=== PATIENT | female | born 1970 | race Caucasian/White ===

== ENCOUNTER 2023-02-01 00:28 | Emergency (ER) | payer BC, SELFPAY ==
--- NOTE | ~2023-02-01 | CT_ITS ---
EXAMINATION: NONCONTRAST HEAD CT NONCONTRAST MAXILLOFACIAL CT INDICATION INFORMATION: Status post fall COMPARISON: None TECHNIQUE: Separate noncontrast CT examinations of the head and maxillofacial bones were performed. Coronal and sagittal images were created for each examination at the technologist workstation. This CT examination was performed using dose optimization techniques as appropriate, variously including the following: *Automated exposure control *Adjustment of mA and/or kV according to patient size (this includes techniques or standardized protocols for targeted exams where dose is matched to indication/reason for exam; i.e. extremities or head) *Use of iterative reconstruction technique DLP: 984 mGy-cm FINDINGS: Head: There is no evidence of acute intracranial hemorrhage or territorial infarction. No abnormal mass effect or midline shift is seen. German to white matter differentiation is well preserved. No extra-axial fluid collections are identified. No hydrocephalus. No significant volume loss. There is no abnormal attenuation within the brain parenchyma. No acute soft tissue abnormality. No calvarial fracture. The mastoid air cells are well aerated. Maxillofacial: No acute maxillofacial fractures are seen. The frontal, maxillary, ethmoid, and sphenoid sinuses are well aerated. The uncinate process is normal bilaterally. The infundibula and middle meati are patent. The nasal septum is midline. The mandibular heads are well-seated in the condylar fossa. The orbits demonstrate a normal appearance bilaterally. The globes are intact, and there are no suspicious findings to suggest retrobulbar hemorrhage. There is left premaxillary and buccal soft tissue swelling/stranding with trace soft tissue gas punctate hyperdensities reflective of foreign bodies. CT/CT facial bones wo IV con IMPRESSION: * No acute intracranial findings. * No acute maxillofacial fracture. * Left premaxillary and buccal soft tissue trauma as described.
[2023-02-01 00:42] VITALS: BP 155/105; PULSE 110; RESP 17; TEMP 36.6; O2SAT 95; BMI 31.6
--- NOTE | 2023-02-01 01:07 | ED.FALL ---
HPI - Fall General Chief Complaint: Wound/Laceration Stated Complaint: Fall/Face Lac Time Seen by Provider: 02/01/23 01:07 Source: patient Mode of arrival: ambulatory Limitations: no limitations History of Present Illness HPI Narrative: Patient had few drinks earlier today was coming out of the car lost balance tripped and fell hitting her left cheek to the post, comes here with laceration at the chin and left cheek no loss of conscious no seizures no other injury Related Data Previous Rx's Medication Instructions Recorded cephalexin 500 mg capsule 500 mg PO QID 7 days #28 caps 02/01/23 Allergies Allergy/AdvReac Type Severity Reaction Status Date / Time Penicillins Allergy Hives Verified 02/01/23 00:45 Review of Systems Review of Systems: Yes all other systems are reviewed and are negative [facility] Social History Social History Advance Directives: No Advance Directives Information Provided: Yes Physical Exam Vital Signs: Vital Signs: Last Vital Signs Temp 97.9 F 02/01/23 00:42 Pulse 110 H 02/01/23 00:42 Resp 17 02/01/23 00:42 BP 155/105 H 02/01/23 00:42 Pulse Ox 95 02/01/23 00:42 O2 Del Method Room Air 02/01/23 00:42 BMI result Body Mass Index 31.6 Appearance: Alert. Oriented X3. No acute distress. etoh+ Eyes: PERRLA, No Nystagmus ENT: Pharynx normal. Oral Mucosa moist Neck: Normal inspection. Neck supple. No midline tenderness CVS: Normal heart rate and rhythm. Pulses normal. Respiratory: No respiratory distress. Equal air entry bilateral, no wheezing/rales/rhonchi Abdomen: Soft and nontender. Bowel sounds are present, no mass palpable, no CVA tenderness Skin: Skin warm and dry. Normal skin color. Normal skin turgor. Extremities: No lower extremity edema. No calf tenderness Neuro: Oriented X 3. No motor deficit. No sensory deficit.No cerebellar signs , cranial nerves II-XII intact HEENT: Head images: 1. Deep flap laceration left cheek 8 cm 2. Superficial laceration 1 cm Medications Administered Discontinued Medications Generic Name Dose Route Start Last Admin Trade Name Freq PRN Reason Stop Dose Admin Lidocaine HCl 15 ml 02/01/23 01:18 02/01/23 01:28 Lidocaine Hcl 1 % Mpf 5 Ml Vial INFILTRATI 02/01/23 01:19 15 ml ONCE ONE Administration Procedures Laceration Laceration 1: Site: face Side (If applicable): left Size (cm): 10 Depth: simple, single layer Local Anesthetic: lidocaine 1% Amount of anesthesia used (mL): 15 Pre-repair: wound explored and deep structures intact Skin layer closed with: nylon Size (cm): 5-0 Number of sutures: 13 Technique: simple, interrupted Laceration 2: Site: face Side (If applicable): left Size (cm): 1.5 Description: linear Depth: simple, single layer Local Anesthetic: lidocaine 1% Amount of anesthesia used (mL): 2 Skin layer closed with: nylon Size (cm): 5-0 Number of sutures: 4 Technique: simple, interrupted Medical Decision Making Medical Decision Making MDM Narrative: Patient with laceration to the left cheek and chin which was sutured will get CT scan to rule out any deeper injury Discharge Plan Discharge Clinical Impression: Laceration, Head injury Patient Disposition: Home, Self-Care Instructions: Head Injury (ED), Facial Laceration (ED) Additional Instructions: Local care as advised Suture removal in 10 days Take prophylaxis antibiotic to avoid infection Prescriptions: New cephalexin 500 mg capsule 500 mg PO QID 7 Days Qty: 28 0RF
--- NOTE | 2023-02-01 01:22 | MHC.EDTECH ---
this tech irrigated and cleaned laceration to left cheek and lip. suture set up at bedside for .
[2023-02-01] MEDS: Lidocaine HCl 1 % MPF 5 ML VIAL 15 ML INFILTRATI (01:28)
[2023-02-01] MEDS: cephALEXin 500 MG CAPSULE PO (02:14)
[2023-02-01] MEDS: Diphth,Pertus(ACell),Tet Adult 0.5 ML SYRINGE IM (02:15)
--- NOTE | 2023-02-01 03:25 | PC.NURSE ---
patient ambulatory to and from bathroom with steady gait.
[2023-02-01 03:37] VITALS: PULSE 88; RESP 17; O2SAT 98
== END 2023-02-01 03:38 | disposition home or self-care (01) ==
PROVIDERS: Emergency Provider Internal Medicine; PCP Internal Medicine
DX: S00.81XA Abrasion of other part of head, initial encounter (principal); R51.9 Headache, unspecified; W01.10XA Fall on same level from slipping, tripping and stumbling with subsequent striking against unspecified object, initial encounter; Y93.9 Activity, unspecified; Y92.9 Unspecified place or not applicable; Y99.9 Unspecified external cause status; Z23 Encounter for immunization
CPT/HCPCS: 70450; 70486; 90471; 90715; 99283; 99284

== ENCOUNTER 2025-07-06 11:44 | Emergency (ER) | payer BC, SELFPAY ==
--- NOTE | ~2025-07-06 | US_ITS ---
EXAMINATION: US LOWER EXTREMITY VEINS LIMITED FOLLOW UP LEFT HISTORY: swelling, redness, concern for DVT COMPARISON: There are no prior studies available for comparison. TECHNIQUE: Duplex and color Doppler sonographic examination of the deep venous system of the left lower extremity was performed. FINDINGS: The common femoral, superficial femoral, and popliteal veins are patent demonstrating normal compressibility, spontaneous flow, and augmentation. There is a normal color and spectral Doppler waveform appearance of the visualized deep venous system above the knee. The posterior tibial and peroneal veins are patent. There is thrombosis of a superficial venous varicosity of the left proximal medial calf. US/US venous duplex LE LT IMPRESSION: Thrombosis of a superficial venous varicosity in the left proximal medial calf. No evidence of acute DVT in the left lower extremity. Electronically signed by: Filipe Gallardo MD 07/06/2025 02:49 PM EDT
[2025-07-06 11:48] VITALS: BP 174/95; PULSE 83; RESP 18; TEMP 36.4; O2SAT 99; BMI 30.7
--- NOTE | 2025-07-06 11:51 | ED_ITS ---
HPI - General Adult General Chief complaint: Extremity Injury, Lower Stated complaint: r/o DVT sent from Time Seen by Provider: 07/06/25 15:06 Source: patient Mode of arrival: ambulatory Limitations: no limitations History of Present Illness ED Provider: Emily Ruiz PA-C HPI narrative: Patient is a 54 year old assigned female at with no reported medical history presenting to the emergency department today with left lower leg pain, redness, and swelling. Patient states that over the last day she has had left lower leg redness / swelling / pain. Patient denies any other complaints at this time. Related Data Previous Rx's ?Medication ?Instructions ?Recorded cephalexin 500 mg capsule 500 mg PO QID 7 days #28 cap s 02/01/23 Allergies Allergy/AdvReac Type Severity Reaction Status Date / Time Penicillins Allergy Hives Verified 07/06/25 11:50 Review of Systems 2 Constitutional: Constitutional: Reports as per HPI Eyes: Eyes: Reports as per HPI ENT: Reports as per HPI Cardiovascular: Cardiovascular: Reports as per HPI Respiratory: Respiratory: Reports as per HPI Gastrointestinal: Gastrointestinal: Reports as per HPI Genitourinary: Genitourinary: Reports as per HPI Musculoskeletal: Musculoskeletal: Reports as per HPI Integumentary/Breasts: Skin/Breast: Reports as per HPI Neurologic: Reports as per HPI Psychiatric: Psychiatric: Reports as per HPI Endocrine: Endocrine: Reports as per HPI Hematologic/Lymphatic: Hematologic/Lymphatic: Reports as per HPI Allergic/Immunologic: Allergic/Immunologic: Reports as per HPI PMF Past Medical History Attestation statement: The following information was validated with the patient. Source: old records reviewed and nursing notes reviewed Social History Social History Advance Directives: Yes Advance Directives Information Provided: Yes Advance Directives on File: No Physical Exam ED Vital Signs: Vital Signs - 24 hr 07/06/25 11:48 07/06/25 15:28 Temperature 97.6 F 97.6 F Pulse Rate 83 83 Respiratory Rate 18 18 Blood Pressure 174/95 H 174/95 H Pulse Oximetry 99 99 Oxygen Delivery Method Room Air Room Air BMI result Body Mass Index 30.7 Const General: cooperative, no acute distress, alert and awake Nutritional Appearance: well nourished Orientation/consciousness: patient oriented x3 HENMT Head: Yes normal to inspection and Yes atraumatic Ears: hearing grossly normal bilaterally and external ears normal General nose exam: Normal external nose present, no nasal discharge noted and no epistaxis Face and sinus: Yes normal facial exam, No abrasion and No laceration Mouth: Normal oral and palatal mucosa present, no drooling and no muffled voice Eyes General: appearance normal, both eyes and all related structures Periorbital: periorbital findings normal Eyelids: Yes eyelids normal Conjunctivae: conjunctivae normal Pupils: Equal, round and reactive pupils present EOM: EOMs intact bilaterally Neck Neck: Yes normal visual inspection and Yes full ROM Resp Effort & Inspection: normal respiratory effort and able to speak in complete sentences Neuro General: patient oriented x3, moves all extremities and CN's II-XI intact bilaterally Cranial nerves: Yes Equal, round and reactive pupils present Cognition (Neuro): normal cognition Extrem Other: left lower leg warmth left lower leg redness minimal swelling to the left lower leg General: Yes full ROM and Yes capillary refill normal Psych Appearance: grossly normal Mental Status: mental status grossly normal Affect: normal affect Attitude: cooperative Thought process: Normal thought process present Thought content: Normal thought content present Insight: Good insight present (Psych) Course Course Course Narrative: Rapid medical examination performed in triage by Emily Ruiz PA-C. Patient is a 54 year old assigned female at presenting to the emergency department with left lower leg swelling / redness.Detailed physical exam and review of systems are deferred to the features reporter. Labs and imaging ordered. Patient placed back in the waiting room pending room availability and results. Medical Decision Making Medical Decision Making MDM Narrative: Patient is a 54 year old assigned female at with no reported medical history presenting to the emergency department today with left lower leg pain, redness, and swelling. Patient's physical exam was as noted in the physical exam portion of this note. Patient's blood work showed an elevated CRP of 0.92 but otherwise unremarkable. Patient's LLE US showed superficial thrombophlebitis. I explained my physical exam findings as well as all test results to the patient. I answered all questions asked by the patient. I stressed the importance of the patient taking her medication as directed (either prescribed or as the over the counter packaging recommends). I stressed the importance of the patient following up with her primary care provider. I stressed the importance of the patient returning to the emergency department immediately if her symptoms were to worsen or if she were to develop any dizziness, shortness of breath, difficulty breathing, chest pain, blurry vision, loss of vision, nausea, vomiting, abdominal pain, fever, chills, back pain, or any other complaints. Patient verbalized agreement and understanding with this treatment plan and discharge. Differential Diagnosis Differential Diagnoses: The differential diagnosis associated with the presentation includes Left lower leg DVT Left lower leg thrombophlebitis Left lower leg cellulitis Left lower leg pain Admission/Observation Consideration of admission/observation: Escalation of care including admission/observation considered Patient would have been admitted to the hospital had her work up had any findings where hospital admission was appropriate and her clinical presentation warranted hospital admission. Lab Data [facility] Lab Attestation statement: I reviewed the patient's lab results. My interpretation of these results are in the [facility] Rationale portion of this note. 07/06/25 12:17 07/06/25 12:17 Labs: Lab Results 07/06/25 Range/Units 12:17 WBC 9.7 (4.8-10.8) X10*3/uL RBC 4.64 (4.20-5.50) X10*6/uL Hgb 14.3 (12.0-16.0) g/dl Hct 41.7 (37.0-47.0) % MCV 89.9 (80.0-98.0) fL MCH 30.8 (27.0-33.0) pg MCHC 34.3 (31.0-35.0) g/dl RDW 14.8 (11.0-16.0) % Plt Count 308 (160-400) X10*3/uL MPV 9.5 (9.4-12.3) fL Immature Gran % (Auto) 0.3 (0.0-0.4) % Neut % (Auto) 60.8 (45-73) % Lymph % (Auto) 28.3 (20-40) % Clark % (Auto) 8.8 (2-11) % Eos % (Auto) 1.3 (0-4) % Baso % (Auto) 0.5 (0-2) % Lymph # (Auto) 2.8 (1.2-4.9) X10*3/uL Clark # (Auto) 0.9 (0.1-1.2) X10*3/uL Eos # (Auto) 0.1 (0.0-0.4) X10*3/uL Baso # (Auto) 0.1 (0.0-0.2) X10*3/uL Abs Immat Gran (auto) 0.03 (0.00-0.03) X10*3/uL Absolute Neuts (auto) 5.9 (2.0-8.3) x10*3/uL Absolute Nucleated RBC 0.000 (0.0-0.012) X10*3/uL Nucleated RBC % (auto) 0.0 (0.0-0.2) /100WBC ESR 2 (0-20) MM/HR Sodium 137 (135-145) mmol/L Potassium 3.9 (3.3-5.1) mmol/L Chloride 102 (96-108) mmol/L Carbon Dioxide 27 (22-29) mmol/L Anion Gap 12 (12-20) BUN 6 L (9-16) mg/dL Creatinine 0.70 (0.5-1.4) mg/dL Estim Creat Clear Calc 102.8 Estimated GFR > 60 Random Glucose 106 (60-115) mg/dL Calcium 9.1 (8.4-10.2) mg/dL Total Bilirubin 0.3 (0.0-1.0) mg/dL AST 19 (5-31) U/L ALT 18 (0-31) U/L Alkaline Phosphatase 75 (39-117) U/L C-Reactive Protein 0.92 H (< or = 0.50) mg/dL Total Protein 6.9 (6.5-8.0) g/dL Albumin 4.2 (3.5-5.0) g/dL Independent Interpretation I performed an independent interpretation of an: Ultrasound Interpretation: My interpretation is in agreement with the radiologist's impression of this imaging study. L Reason for Exam: swelling, redness, concern for DVT EXAMINATION: US LOWER EXTREMITY VEINS LIMITED FOLLOW UP LEFT HISTORY: swelling, redness, concern for DVT COMPARISON: There are no prior studies available for comparison. TECHNIQUE: Duplex and color Doppler sonographic examination of the deep venous system of the left lower extremity was performed. FINDINGS: The common femoral, superficial femoral, and popliteal veins are patent demonstrating normal compressibility, spontaneous flow, and augmentation. There is a normal color and spectral Doppler waveform appearance of the visualized deep venous system above the knee. The posterior tibial and peroneal veins are patent. There is thrombosis of a superficial venous varicosity of the left proximal medial calf. US/US venous duplex LE LT IMPRESSION: Thrombosis of a superficial venous varicosity in the left proximal medial calf. No evidence of acute DVT in the left lower extremity. Electronically signed by: Filipe Gallardo MD 07/06/2025 02:49 PM EDT RP Dictated By: Filipe Gallardo MD Signed By: Electronically signed by Filipe Gallardo MD 07/06/25 1449 Radiology Impression Discussion of test interpretation with radiology: I have reviewed the radiologist's reading. Discharge Plan Discharge Clinical Impression: Thrombophlebitis Patient Disposition: Home, Self-Care Instructions: Superficial Thrombophlebitis (ED) Additional Instructions: Apply heat to the affected area and take over the counter NSAIDs. IF you are prescribed home medications and/or you are taking over the counter medications at home- it is very important you continue to do so as prescribed / directed unless told otherwise. SI le recetan medicamentos y/o est? tomando medicamentos de venta sade, es muy importante que contin?e haci?ndolo seg?n lo recetado/indicado a menos que le indiquen lo contrario. Follow up with your primary care provider. Return to the emergency department immediately if your symptoms worsen or if you develop any dizziness, shortness of breath, difficulty breathing, chest pain, blurry vision, loss of vision, nausea, vomiting, abdominal pain, fever, chills, back pain, or any other complaints. Ezra?seguimiento?con cuevas m?dico de atenci?n primaria. Acuda inmediatamente al servicio de urgencias si january s?ntomas empeoran o si presenta falta de aliento, dificultad para respirar, dolor tor?cico, mareos, aturdimiento, dolor de espalda, dolor abdominal, fiebre, escalofr?os o cualquier otro s?ntoma. Please see the information below about our Patient Portal. If you are not yet enrolled in the [facility] Patient Portal, you will receive an enrollment email invitation following your visit to any [facility] care setting. You may also self-enroll in the Patient Portal by visiting our website: [email or web address] The following information is required to access the Patient Portal: - Your [facility] Medical Record Number - Your personal home email address (must match what is in your electronic medical record, Registration staff can assist with this) - Name - Date of Capabilities of the Patient Portal: - Message some providers - View upcoming appointments - Access your health summary, medical history, and visit history - View current conditions and allergies - View procedure and lab results - View your medications, including guidelines, side effects, and precautions - Complete pre-appointment questionnaires requested by your provider - Ready summary reports of your office visits and procedures To access the Patient Portal Mobile [place], follow these directions: - Search [employer] in the [place] Store or [employer] Store - Download the [place] - Search for [facility] - Enter your login/password Portal del paciente Si usted no esta inscrito en el portal de pacientes de [facility], recibira erin invitacion de inscripcion despues de cuevas visita al [facility] o al [facility] via correo electronico. Tambien puede inscribirse voluntariamente en el portal de pacientes visitando nuestra pagina web: [email or web address] La siguiente informacion sera requerida para acceder al portal: - Cuevas kaley de historia medica de [facility] - Cuevas direccion de correo electronico personal - Nombre - Fecha de nacimiento Capacidades: Las siguientes capacidades estan disponibles en el portal de pacientes: - Enviar mensajes a algunos doctores - Verificar proximas citas - Acceso a cuevas historial de abad, registro medico e historial de visitas - Karen las condiciones actuales y alergias karen procedimientos y resultados del laboratorio - Karen january medicamentos, incluyendo las pautas - Efectos secundarios y precauciones - Completar o llenar formularios / cuestionarios de - Citas solicitadas por cuevas doctor - Leer los resumenes de reportes medicos de january visitas y procedimientos Tomas acceder a la aplicacion movil: - Meseret [employer] en la [place] Store o [employer] Store - Descargue la aplicacion - [facility] - Ingrese cuevas nombre de usuario / Contrasena Prescriptions: No Action cephalexin 500 mg capsule 500 mg PO QID 7 Days Qty: 28 0RF Referrals: Len Stevens MD [Primary Care Provider, Internal Medicine] Interventions: ED Discharge Assessment Last Done: 07/06/25 15:28 Discharge Date/Time: 07/06/25 15:28 Print Language: Tuvaluan
[2025-07-06 12:26] LABS: MANUAL DIFF FLAG NO
[2025-07-06 12:27] LABS: Hematocrit 41.7 % (37.0-47.0); Hemoglobin 14.3 g/dl (12.0-16.0); Imm Gran Abs Auto 0.03 X10*3/uL (0.00-0.03); Imm Gran Pct Auto 0.3 % (0.0-0.4); Lymphocytes Absolute Auto 2.8 X10*3/uL (1.2-4.9); Mean Corpuscular HGB Conc 34.3 g/dl (31.0-35.0); Mean Corpuscular Hemoglobin 30.8 pg (27.0-33.0); Mean Corpuscular Volume 89.9 fL (80.0-98.0); NRBC Abs Auto 0.000 X10*3/uL (0.0-0.012); NRBC Pct Auto 0.0 /100WBC (0.0-0.2); Platelet Count 308 X10*3/uL (160-400); Red Blood Count 4.64 X10*6/uL (4.20-5.50); White Blood Count 9.7 X10*3/uL (4.8-10.8)
[2025-07-06 12:44] LABS: Alanine Aminotransferase 18 U/L (0-31); Albumin Level 4.2 g/dL (3.5-5.0); Alkaline Phosphatase 75 U/L (39-117); Anion Gap 12 (12-20); Aspartate Amino Transferase 19 U/L (5-31); Blood Urea Nitrogen 6 mg/dL (9-16); Calcium 9.1 mg/dL (8.4-10.2); Carbon Dioxide 27 mmol/L (22-29); Chloride 102 mmol/L (96-108); Creatinine Clr Calc Pharmacy 102.8; Estimated Glomerular Filt Rate > 60; Potassium 3.9 mmol/L (3.3-5.1); Sodium 137 mmol/L (135-145); Total Protein 6.9 g/dL (6.5-8.0)
--- NOTE | 2025-07-06 14:15 | PC.NURSE ---
This RN called US as chargemaster analyst to assess with the US order at 1130 has not been complete as provider is trying to dispo patient from waiting room. US to get pt at this time, provider still wanting to DC from waiting
[2025-07-06 15:28] VITALS: BP 174/95; PULSE 83; RESP 18; TEMP 36.4; O2SAT 99
--- OUTSIDE RECORDS SUMMARY | 2025-07-06 17:38 | XMS_ITS | Clinical Summary ---
Author Organization [facility] Address [address] [place] [phone] Phone Care Team Providers Care Health And Safety Director Name Role Phone Len Stevens MD Primary Care Provide r Allergies Active Allergy Reactions Criticality Noted Date Comments Penicillins Rash Low 04/12/2019 Sulfa (Sulfonamide Antibiotics) Rash Low 03/25 Medications No known medications Active Problems No known active problems Social History Tobacco Use Types Packs/Day Years Used Date Smoking Tobacco: Every Day Cigarettes Smokeless Tobacco: Never Alcohol Use Standard Drinks/Week Comments Yes 7 (1 standard drink = 0.6 oz pur e alcohol) Education Answer Date Recorded Are you interested in more education? Not on ilan e 02/19/2023 Are you concerned about learning? Not on file 02/19/2023 No 02/19/2023 No 02/19/2023 Digital Access Answer Date Recorded No 03/20/2023 No 03/20/2023 No 03/20/2023 Reliable internet access at home? Not on file 03/20/2023 Device with a working camera? Not on file Comments Unknown Sex and Gender Information Value Date Recorded Sex Assigned at Not on file Legal Sex Female 9:29 AM EDT Gender Identity Not on file Sexual Orientation Not on file Last Filed Vital Signs Vital Sign Reading Time Taken Comments Blood Pressure 138/76 03/23/2022 2:37 PM EDT Pulse 76 03/23/2022 2:37 PM EDT Temperature 36.8 C (98.3 F) 03/23/2022 2:37 PM EDT Respiratory Rate 15 03/23/2022 2:37 PM EDT Oxygen Saturation 99% 03/23/2022 2:37 PM EDT Inhaled Oxygen Concentration - - Weight 77.1 kg (170 lb) 03/23/2022 2:37 PM EDT Height 167.6 cm (5' 6 ) 03/23/2022 2:37 PM EDT Body Mass Index 27.44 03/23/2022 2:37 PM EDT Plan of Treatment Health Maintenance Due Date Last Done Comments LIPID PANEL 1971 DEPRESSION SCREENING 1983 SMOKING Hx and SMOKELESS TOBACCO SCREENING 1984 HEPATITIS C SCREENING 1989 HIV ONE-TIME SCREENING (18-65 YEARS) 1989 PAP SMEAR 1992 MAMMOGRAM 2011 PNEUMOCOCCAL VACCINES (50+ years) (2 of 2 - PCV) 07/15/2013 07/15/2012 COLOGUARD 2016 FIT TEST 2016 FOBT 2016 SIGMOIDOSCOPY 2016 VIRTUAL COLONOSCOPY 2016 ZOSTER VACCINES (1 of 2) 2021 INFLUENZA VACCINE (#1) 2025 9, 08/12/2018, 08/13/2016, Additional history exists COVID-19 VACCINE (2 - 2024- season) 2025 01/16/2021 Adult Td,Tdap Booster 02/04/2028 02/03/2018, 998 COLONOSCOPY 04/12/2029 04/12/2019 COLORECTAL CANCER SCREENING 04/12/2029 HEPATITIS A VACCINES Aged Out No long er eligible based on patient's age to complete this topic HIB VACCINES Aged Out No longer eligi ble based on patient's age to complete this topic MENINGOCOCCAL VACCINES (ACWY) Aged Out No longer eligible based on patient's age to complete this topic MENINGOCOCCAL VACCINES (B) Aged Out N o longer eligible based on patient's age to complete this topic Medical Devices Implanted Type Area Wardrobe Attendant Device Identifier Shelf Expiration Date Model / Serial / Lot Clip Hemostasis Resolution 360 Lf Nonsterile 2.8mm Channel 360deg 235cm Bx/20ea - [id number] Implanted:Qty: 1 on 04/12/2019 by Dianna Kaminski MD at [facility] [employer] [facility] [id number] / / Procedures Procedure Name Priority Date/Time Associated Diagnosis Comments ENDOSCOPY, COLON 04/12/2019 8:15 AM EDT from Last 3 Months or Most Recently Relevant to Health Maintenance Results * ENDOSCOPY, COLON (04/12/2019 8:15 AM EDT) Narrative Transcriptions Dianna Kaminski MD - 04/12/2019 8:15 AM EDT Patient Name: Layton Ruiz Attending MD:: DIANNA KAMINSKI MD Procedure Date: 04/12/2019 8:15 AM Date of : 1970 Age: 48 Admit Type: Outpatient Gender: Female Room: [place] [address] Referring MD: LEN STEVENS Exam Type: Colonoscopy Indications: Screening patient at increased risk: Family history of 1st-degree relative with colorectal cancer at age 60years (or older), Screening patient at increased risk: Family history of colorectal cancer in multiple 1st-degree relatives Medications: Monitored Anesthesia Care Procedure: Informed consent was obtained from the patient after discussion of the indications, limitations,alternatives, benefits, and risks of the procedure. Risksspecifically discussed include but are not limited to medication reactions, missed lesions, bleeding, perforation, orthe need for emergent surgery. Throughout the procedure, the patient's blood pressure, pulse, end-tidal CO2, and oxygen saturations were monitored continuously. The Olympus pediatric variable colonoscope [id number]-[id number] was introduced through the anus and advanced to thececum, identified by appendiceal orifice and ileocecal valve.The colonoscopy was performed without difficulty. Thepatient tolerated the procedure fairly well. The quality of the bowel preparation was good. Complications: No immediate complications. Estimated blood loss:None. Findings: The perianal and digital rectal examinations werenormal. Pertinent negatives include normal sphincter tone. A 6 mm polyp was found in the distal sigmoid colon. The polyp was sessile. The polyp was removed with a cold snare. Resection and retrieval were complete. Toprevent bleeding after the polypectomy, two hemostatic clipswere successfully placed. There was no bleeding during, orat the end, of the procedure. Retroflexion in the right colon was performed. The exam was otherwise without abnormality on directand retroflexion views. Impression: - One 6 mm polyp in the distal sigmoid colon, removedwith a cold snare. Resected and retrieved. Clips wereplaced. - The examination was otherwise normal on direct and retroflexion views. Recommendation: - I will send results of your biopsy to you and your referring physician or provider. If you do not receive notification within 3 weeks, please call our office. - Repeat colonoscopy in 5 years for surveillance basedon pathology results. -Clip precautions DIANNA KAMINSKI MD 04/12/2019 8:40:18 AM This report has been signed electronically. Number of Addenda: 0 Note Initiated On: 04/12/2019 8:15 AM Procedure Code(s): --- Professional --- 34435, Colonoscopy, flexible; with removal of tumor(s), polyp(s), or other lesion(s) by snare technique --- Technical --- 86572, Colonoscopy, flexible; with removal of tumor(s), polyp(s), or other lesion(s) by snare technique Diagnosis Code(s): --- Professional --- D12.5, Benign neoplasm of sigmoid colon Z80.0, Family history of malignant neoplasm of digestive organs --- Technical --- D12.5, Benign neoplasm of sigmoid colon Z80.0, Family history of malignant neoplasm of digestive organs CPT copyright 2016 [employer]. All rights reserved. The codes documented in this report are preliminary and upon flute grinder reviewmay be revised to meet current compliance requirements. [address] [place] [address] Len Stevens MD GI PROCEDURE ORDERABL ES Final Result from Last 3 Months or Most Recently Relevant to Health Maintenance Insurance [facility] POS [facility] Care Teams Health And Safety Director Relationship Specialty Start Date End Date Len Stevens MD PCP - General Internal Medicine 04/12/19 Additional Source Comments The information contained in this document represents components of the legal health record. It is not the complete legal health record.[facility]
--- OUTSIDE RECORDS SUMMARY | 2025-07-06 17:38 | XMS_ITS | Encounter Summary ---
Author Organization [facility] Address [address] [place] [phone] Phone Care Team Providers Care Law Tutor Name Role Phone Len Stevens MD Primary Care Provide r Encounter Details Date Type Department Care Team ([facility] st Contact Info) Description 04/12/2019 Procedure Pass [facility] Endoscopy Admitting Dept Virtual Department [address] [place] [address] Social History Tobacco Use Types Packs/Day Years Used Date Smoking Tobacco: Every Day Cigarettes Smokeless Tobacco: Never Alcohol Use Standard Drinks/Week Comments Yes 7 (1 standard drink = 0.6 oz pur e alcohol) Comments Unknown Sex and Gender Information Value Date Recorded Sex Assigned at Not on file Legal Sex Female 9:29 AM EDT Gender Identity Not on file Sexual Orientation Not on file documented as of this encounter Plan of Treatment Not on file documented as of this encounter Visit Diagnoses Not on filedocumented in this encounter Care Teams Law Tutor Relationship Specialty Start Date End Date Len Stevens MD PCP - General Internal Medicine 04/12/19 documented as of this encounter Additional Source Comments The information contained in this document represents components of the legal health record. It is not the complete legal health record.[facility]
== END 2025-07-06 15:28 | disposition home or self-care (01) ==
PROVIDERS: Physician Assistant Medical; Emergency Provider Emergency Medicine; PCP Internal Medicine
DX: I80.02 Phlebitis and thrombophlebitis of superficial vessels of left lower extremity (principal); Z79.899 Other long term (current) drug therapy
CPT/HCPCS: 36415; 80053; 85025; 85652; 86140; 93971; 99282; 99284

== ENCOUNTER → 2025-07-06 11:52 | Outpatient (BNV) | payer BC, SELFPAY | PROVIDERS: PCP Internal Medicine; Visit Provider Radiology Diagnostic Radiology | DX: I82.812 Embolism and thrombosis of superficial veins of left lower extremity (principal) | CPT/HCPCS: 93971 ==